=== PATIENT | female | born 1950 | race African-American/Black ===

== ENCOUNTER 2017-05-21 10:25 | Inpatient (IN) | payer OTHER ==
[~2017-05-21] VITALS: Ht 162.6 cm; Wt 76.7 kg
[2017-05-21] MEDS ORDERED: IPRATROPIUM BROMIDE (0.02%) 0.5MG/2.5ML NEB HHN STA (10:41)
[2017-05-21] MEDS ORDERED: METHYLPREDNISOLONE SOD SUCC 125 MG/2 ML VIAL IV STA (10:41)
[2017-05-21] MEDS ORDERED: ALBUTEROL (0.083%) 2.5MG/3ML NEB HHN STA (10:41)
[2017-05-21 10:54] LABS: BASOPHILS % 0.6 % (0.0-2.0); EOSINOPHILS % 0.3 % (0.0-5.0); HEMATOCRIT. 28.3 % (36.0-48.0); HEMOGLOBIN. 8.3 g/dL (12.0-16.0); LYMPHOCYTES % 8.6 % (20.0-50.0); MEAN CORPUSCULAR VOLUME 60.9 fL (81.0-99.0); MEAN PLATELET VOLUME 8.5 fl (7.4-10.4); MONOCYTES % 14.5 % (2.0-8.0); PLATELET 228 x1000/uL (130-400); RED BLOOD CELL COUNT 4.64 mill/uL (4.2-5.4); RED CELL DISTRIBUTION WIDTH 20.7 % (11.6-14.6)
[2017-05-21] MEDS ORDERED: ASPIRIN 325MG TABLET PO ONE (11:00)
[2017-05-21 11:05] LABS: D-DIMER 1.86 mg/L FEU (<0.50); INR 1.2; PROTHROMBIN TIME 12.5 sec (9.4-11.6)
[2017-05-21 11:12] LABS: CARBON DIOXIDE 27 mEq/L (21-32); CHLORIDE 106 mEq/L (98-107); TROPONIN I 0.04 ng/mL (0.00-0.04)
[2017-05-21 11:21] LABS: PLATELET ESTIMATE NORMAL
[2017-05-21] MEDS ORDERED: ENOXAPARIN 80MG/0.8ML SYR SUBCUT ONE (13:15)
[2017-05-21] MEDS ORDERED: LEVOFLOXACIN 750MG PREMIX 150 ML IV ONE (14:30)
[2017-05-21 14:55] LABS: CLARITY URINE CLEAR (CLEAR); COLOR URINE YELLOW (YELLOW); GLUCOSE URINE NEGATIVE (NEGATIVE); KETONES URINE TRACE (NEGATIVE); LEUKOCYTE ESTERASE URINE NEGATIVE (NEGATIVE); NITRITE URINE NEGATIVE (NEGATIVE); OCCULT BLOOD URINE NEGATIVE (NEGATIVE); PH URINE 6.5 (4.5-8.0); PROTEIN URINE NEGATIVE (NEGATIVE); SPECIFIC GRAVITY URINE 1.048 (1.005-1.030)
[2017-05-21] MEDS ORDERED: IOHEXOL-300 100 ML BOTTLE ONE (15:17)
[2017-05-21] MEDS ORDERED: IOHEXOL-350 100 ML BOTTLE ONE (15:22)
[2017-05-21] MEDS ORDERED: ATEN100T PO (16:14)
[2017-05-21] MEDS ORDERED: ALBU2.5V13 NEB (16:14)
[2017-05-21] MEDS ORDERED: NIFE30TA94 PO (16:14)
[2017-05-21] MEDS ORDERED: FLOV44 INH (16:14)
[2017-05-21] MEDS ORDERED: FLUT1DIS3 IH (16:14)
[2017-05-21 16:39] VITALS: BP 120/75
[2017-05-21] MEDS ORDERED: ALBUTEROL (0.083%) 2.5MG/3ML NEB HHN PRN (17:30)
[2017-05-21 20:00] VITALS: BP 148/76
[2017-05-21] MEDS ORDERED: DOCUSATE SODIUM 100MG CAPSULE PO PRN (20:00)
[2017-05-21] MEDS ORDERED: GUAIFENESIN 200MG/10ML SUGAR FREE UDC PO PRN (20:00)
[2017-05-21] MEDS ORDERED: ACETAMINOPHEN 325MG TABLET PO PRN (20:00)
[2017-05-21] MEDS ORDERED: CLONIDINE 0.1MG TABLET PO PRN (20:00)
[2017-05-21] MEDS: METHYLPREDNISOLONE SOD SUCC 40 MG/ML VIAL IV SCH (20:54)
[2017-05-21] MEDS: ENOXAPARIN 80MG/0.8ML SYR SUBCUT SCH (20:55)
[2017-05-21] MEDS ORDERED: CEFTRIAXONE 1 G PREMIX 50 ML IV SCH (22:00)
[2017-05-22] VITALS (9 sets, daily range): BP systolic 108–167; BP diastolic 60–94
[2017-05-22] MEDS: METHYLPREDNISOLONE SOD SUCC 40 MG/ML VIAL IV SCH ×4 (01:14→18:06)
[2017-05-22 04:51] LABS: BG BASE EXCESS 1.1 mmol/L (-2.0-2.0); BG CARBOXYHEMOGLOBIN 0.2 % (0.5-1.5); BG DEOXYHEMOGLOBIN 5.4 % (0.0-5.0); BG FRACTION INSPIRED OXYGEN 21; BG HCO3 ACT 25.5 mmol/L (22.0-26.0); BG METHEMOGLOBIN 0.4 % (0.0-1.5); BG OXYGEN SATURATION 94.6 % (92.0-98.5); BG PH 7.423 (7.350-7.450); BG PO2 74.1 mmHg (75.0-100.0); BG SAMPLE SITE RIGHT RADIAL; BG TOTAL HEMOGLOBIN 8.6 g/dL (12.0-18.0); BG VENT MODE ROOM AIR
[2017-05-22] MEDS ORDERED: OMEPRAZOLE 20MG CAPSULE EXTENDED RELEASE PO SCH (06:45)
[2017-05-22] MEDS: IPRATROPIUM/ALBUTEROL 0.5-3(2.5)MG/3ML NEB HHN SCH ×4 (06:59→16:00)
[2017-05-22 07:06] LABS: HEMOGLOBIN. 7.6 g/dL (12.0-16.0); MEAN CORPUSCULAR HEMOGLOBIN 17.9 pg (28.0-32.0); MEAN CORPUSCULAR VOLUME 61.2 fL (81.0-99.0); MEAN PLATELET VOLUME 9.5 fl (7.4-10.4); PLATELET 199 x1000/uL (130-400); RED BLOOD CELL COUNT 4.25 mill/uL (4.2-5.4); RED CELL DISTRIBUTION WIDTH 20.8 % (11.6-14.6)
[2017-05-22 07:30] LABS: CARBON DIOXIDE 27 mEq/L (21-32); CHLORIDE 106 mEq/L (98-107); PHOSPHORUS 3.3 mg/dL (2.5-4.9); TOTAL IRON BINDING CAPACITY 483 ug/dL (250-450)
[2017-05-22 08:57] LABS: FOLIC ACID (FOLATE) SERUM 9.1 ng/mL (>5.38)
[2017-05-22] MEDS ORDERED: AZITHROMYCIN 500 MG TABLET PO SCH (09:00)
[2017-05-22] MEDS ORDERED: NIFEDIPINE XL 90MG TAB PO SCH (09:00)
[2017-05-22] MEDS ORDERED: ATENOLOL 100 MG TABLET PO SCH (09:00)
[2017-05-22] MEDS: ENOXAPARIN 80MG/0.8ML SYR SUBCUT SCH (09:06)
[2017-05-22 10:56] LABS: PLATELET ESTIMATE NORMAL
== END 2017-05-22 18:45 | disposition short-term general hospital (02) | DRG 175 ==
LOC: ER 10:41 → 5WST 14:29 → ENRESERV 14:47
PROVIDERS: ADMIT Internal Medicine Pulmonary Disease; ATTEND Internal Medicine Pulmonary Disease
DX: I26.99 Other pulmonary embolism without acute cor pulmonale (principal); J18.9 Pneumonia, unspecified organism; J45.901 Unspecified asthma with (acute) exacerbation; I10 Essential (primary) hypertension; D64.9 Anemia, unspecified; Z88.0 Allergy status to penicillin; Z90.49 Acquired absence of other specified parts of digestive tract; Z82.3 Family history of stroke; Z82.49 Family history of ischemic heart disease and other diseases of the circulatory system; Z82.5 Family history of asthma and other chronic lower respiratory diseases; Z88.6 Allergy status to analgesic agent
CPT/HCPCS: 36415; 36600; 71010; 71275; 80048; 80053; 81003; 82375; 82607; 82746; 82805; 83540; 83550; 83605; 83735; 83880; 84100; 84484; 85025; 85379; 85610; 87040; 93005; 93970; 94640; 94664; 96372; 96374; 99291; J0696; J1650; J2920; J2930; J7040; J7611; J7620; Q9967

== ENCOUNTER 2021-08-24 16:07 | Emergency (ER) | payer MEDICARE, OTHER ==
[~2021-08-24] VITALS: Ht 175.3 cm; Wt 90.0 kg
[~2021-08-24 16:07] MED LIST: ALBU2.5V13 NEB; ATEN100T PO; FLOV44 INH; FLUT1DIS3 IH; NIFE30TA94 PO
[2021-08-24 16:50] LABS: HEMATOCRIT. 31.7 % (36.0-48.0); HEMOGLOBIN. 10.2 g/dL (12.0-16.0); MEAN CORPUSCULAR HEMOGLOBIN 26.4 pg (28.0-32.0); MEAN CORPUSCULAR VOLUME 81.9 fL (81.0-99.0); MEAN PLATELET VOLUME 8.8 fl (7.4-10.4); PLATELET 294 x1000/uL (130-400); RED BLOOD CELL COUNT 3.87 mill/uL (4.2-5.4); RED CELL DISTRIBUTION WIDTH 16.9 % (11.6-14.6)
[2021-08-24 16:56] LABS: CHLORIDE 97 mEq/L (98-107)
[2021-08-24 16:59] LABS: ETHANOL BLOOD < 10 mg/dL
[2021-08-24 17:05] LABS: CLARITY URINE CLEAR (CLEAR); COLOR URINE YELLOW (YELLOW); KETONES URINE NEGATIVE (NEGATIVE); LEUKOCYTE ESTERASE URINE NEGATIVE (NEGATIVE); NITRITE URINE NEGATIVE (NEGATIVE); OCCULT BLOOD URINE NEGATIVE (NEGATIVE); PROTEIN URINE NEGATIVE (NEGATIVE); SPECIFIC GRAVITY URINE 1.018 (1.005-1.030); UROBILINOGEN URINE 0.2 E.U./dL (0.2-1.0)
[2021-08-24 17:19] LABS: *AMPHETAMINES SCREEN URINE NEGATIVE (NEGATIVE); *BARBITURATES SCREEN URINE NEGATIVE (NEGATIVE); *BENZODIAZEPINES SCREEN URINE NEGATIVE (NEGATIVE); *COCAINE SCREEN URINE NEGATIVE (NEGATIVE); CANNABINOID URINE SCREEN NEGATIVE (NEGATIVE); METHADONE URINE SCREEN NEGATIVE (NEGATIVE); OPIATES URINE SCREEN NEGATIVE (NEGATIVE); PHENCYCLIDINE URINE SCREEN NEGATIVE (NEGATIVE)
[2021-08-24] MEDS ORDERED: ACETAMINOPHEN 650MG SUPP PR ONE (18:00)
[2021-08-24 20:43] LABS: PLATELET ESTIMATE NORMAL
[2021-08-25 14:10] VITALS: BP 130/69
== END 2021-08-25 14:29 | disposition home or self-care (01) ==
LOC: ER 16:07
DX: U07.1 COVID-19 (principal); I10 Essential (primary) hypertension; J45.909 Unspecified asthma, uncomplicated; I69.351 Hemiplegia and hemiparesis following cerebral infarction affecting right dominant side; Z90.49 Acquired absence of other specified parts of digestive tract; Z88.6 Allergy status to analgesic agent; Z88.0 Allergy status to penicillin
CPT/HCPCS: 36415; 71045; 80053; 80305; 80320; 81003; 82962; 83605; 84145; 84484; 85025; 87077; 87186; 87426; 99285; A4315; G0480

== ENCOUNTER 2021-11-22 17:52 | Inpatient (IN) | payer MEDICARE, OTHER ==
[~2021-11-22] VITALS: Ht 167.6 cm; Wt 102.7 kg
[2021-11-22 19:26] LABS: CHLORIDE 102 mEq/L (98-107)
[2021-11-22] MEDS ORDERED: VANCOMYCIN 1G PREMIX 200 ML IV ONE (20:15)
[2021-11-22] MEDS ORDERED: SODIUM CHLORIDE 0.9% 1000ML BAG (SEPSIS BOLUS) IV ONE (20:15)
[2021-11-22] MEDS ORDERED: VANCOMYCIN 1GM PMX (XELLIA) 200 ML IV NR (20:39)
[2021-11-22 20:55] LABS: HEMATOCRIT. 25.9 % (36.0-48.0); HEMOGLOBIN. 7.7 g/dL (12.0-16.0); MEAN CORPUSCULAR VOLUME 80.6 fL (81.0-99.0); MEAN PLATELET VOLUME 6.9 fl (7.4-10.4); PLATELET 525 x1000/uL (130-400); RED BLOOD CELL COUNT 3.22 mill/uL (4.2-5.4); RED CELL DISTRIBUTION WIDTH 19.5 % (11.6-14.6)
[2021-11-22 20:58] LABS: CLARITY URINE TURBID (CLEAR); COLOR URINE DARK YELLOW (YELLOW); KETONES URINE TRACE (NEGATIVE); LEUKOCYTE ESTERASE URINE 2+ (NEGATIVE); NITRITE URINE NEGATIVE (NEGATIVE); OCCULT BLOOD URINE TRACE (NEGATIVE); PH URINE 6.5 (4.5-8.0); PROTEIN URINE 2+ (NEGATIVE); SPECIFIC GRAVITY URINE 1.025 (1.005-1.030)
[2021-11-22] MEDS: CEFEPIME 1,000 MG in DEXTROSE 5% WATER 50 ML IV SCH (21:01)
[2021-11-22 21:24] LABS: PLATELET ESTIMATE INCREASED
[2021-11-22] MEDS ORDERED: CLINDAMYCIN 300 MG in DEXTROSE 5% WATER 50 ML IV ONE (23:00)
[2021-11-23] MEDS ORDERED: LEVOFLOXACIN 500MG PREMIX 100 ML IV SCH (06:30)
[2021-11-23] MEDS ORDERED: MAGNESIUM/ALUMINUM HYDROXIDE/SIMETHICONE 30ML UDC PO PRN (06:30)
[2021-11-23] MEDS ORDERED: DOCUSATE SODIUM 100MG CAPSULE PO PRN (06:30)
[2021-11-23] MEDS ORDERED: SODIUM CHLORIDE 0.9% 1,000 ML IV SCH (06:30)
[2021-11-23] MEDS ORDERED: ACETAMINOPHEN 325MG TABLET PO PRN (06:30)
[2021-11-23] MEDS ORDERED: ONDANSETRON HCL 4MG/2ML INJ IV PRN ×2 (06:30→14:15)
[2021-11-23] MEDS: CEFEPIME 1,000 MG in DEXTROSE 5% WATER 50 ML IV SCH ×2 (08:48→20:15)
[2021-11-23] MEDS: ENOXAPARIN 40MG/0.4ML SYR SUBCUT SCH (09:00)
[2021-11-23] MEDS: DEXT 5%/0.9% NACL 1,000 ML IV SCH (09:30)
[2021-11-23 09:53] VITALS: BP 105/54
[2021-11-23 10:00] VITALS: BP 105/59
[2021-11-23] MEDS ORDERED: BUPIVACAINE HCL/PF 0.5% (5MG/ML) 30ML ONE (11:55)
[2021-11-23 12:00] VITALS: BP 109/67
[2021-11-23] MEDS ORDERED: VANCOMYCIN 1250MG in DEXTROSE 5% WATER 250ML IV SCH (12:00)
[2021-11-23] MEDS ORDERED: ROCURONIUM BROMIDE 10MG/ML VIAL 5ML IV ONE (13:48)
[2021-11-23 14:00] VITALS: BP 108/60
[2021-11-23] MEDS ORDERED: ETOMIDATE 2MG/ML 10ML VIAL IV ONE (14:10)
[2021-11-23] MEDS ORDERED: MIDAZOLAM HCL 2 MG/2 ML VIAL ONE (14:13)
[2021-11-23] MEDS ORDERED: FENTANYL CITRATE/PF 50MCG/ML 2ML VIAL ONE (14:13)
[2021-11-23] MEDS ORDERED: HYDROMORPHONE HCL/PF 2MG/ML CPJ IV PRN (14:15)
[2021-11-23] MEDS ORDERED: LABETALOL 5MG/ML SYR 20 MG/4 ML SYRINGE IV PRN (14:15)
[2021-11-23] MEDS ORDERED: MEPERIDINE HCL/PF 25MG/ML CPJ IV PRN (14:15)
[2021-11-23] MEDS ORDERED: GLYCOPYRROLATE 0.2 MG/ML 2ML VIAL ONE ×2 (14:21→14:27)
[2021-11-23] MEDS ORDERED: NEOSTIGMINE METHYLSULFATE 1MG/ML 10 ML VIAL ONE (14:21)
[2021-11-23] MEDS ORDERED: AMLO5TAB88 MT (15:43)
[2021-11-23] MEDS ORDERED: LISI20TA31 MT (15:44)
[2021-11-23] MEDS ORDERED: APIX5TAB PO (15:44)
[2021-11-23] MEDS ORDERED: METO25TA6 MT (15:45)
[2021-11-23] MEDS ORDERED: TRAZ-251 MT (15:46)
[2021-11-23] MEDS ORDERED: ATOR-2 PO (15:47)
[2021-11-23] MEDS ORDERED: PANT40TA51 PO (15:48)
[2021-11-23] MEDS ORDERED: SPIR25TA6 PO (15:49)
[2021-11-23 16:00] VITALS: BP 109/65
[2021-11-23] MEDS: PANTOPRAZOLE SODIUM 40 MG/VIAL IV SCH ×2 (16:15→21:00)
[2021-11-23] MEDS: VANCOMYCIN 1.25GM PMX (XELLIA) 250 ML IV SCH (16:26)
[2021-11-23 17:16] LABS: HEMATOCRIT. 24.4 % (36.0-48.0); HEMOGLOBIN. 7.5 g/dL (12.0-16.0); MEAN CORPUSCULAR HEMOGLOBIN 23.9 pg (28.0-32.0); MEAN CORPUSCULAR VOLUME 78.1 fL (81.0-99.0); PLATELET 466 x1000/uL (130-400); RED BLOOD CELL COUNT 3.12 mill/uL (4.2-5.4); RED CELL DISTRIBUTION WIDTH 19.6 % (11.6-14.6)
[2021-11-23 17:33] LABS: TOTAL IRON BINDING CAPACITY 157 ug/dL (250-450)
[2021-11-23 17:47] LABS: FERRITIN 521 ng/mL (10-291); FOLIC ACID (FOLATE) SERUM >20 ng/mL ng/mL (>5.38)
[2021-11-23 17:59] LABS: VITAMIN B12 SERUM >2000 pg/mL pg/mL (211-911)
[2021-11-23 18:16] LABS: NUCLEATED RED BLOOD CELLS 1 /100 WBC
[2021-11-23 18:17] LABS: PLATELET ESTIMATE INCREASED
[2021-11-23 20:00] VITALS: BP 133/65
[2021-11-24] VITALS (10 sets, daily range): BP systolic 91–136; BP diastolic 46–78
[2021-11-24] MEDS: DEXT 5%/0.9% NACL 1,000 ML IV SCH ×2 (00:19→14:59)
[2021-11-24] MEDS: VANCOMYCIN 1.25GM PMX (XELLIA) 250 ML IV SCH (05:54)
[2021-11-24] MEDS ORDERED: LEVOFLOXACIN 250MG PREMIX 50 ML IV SCH (06:45)
[2021-11-24] MEDS: LEVOFLOXACIN 250MG PREMIX 50 ML IV SCH (08:14)
[2021-11-24] MEDS: PANTOPRAZOLE SODIUM 40 MG/VIAL IV SCH ×2 (08:39→21:56)
[2021-11-24] MEDS: ENOXAPARIN 40MG/0.4ML SYR SUBCUT SCH (08:39)
[2021-11-24 10:08] LABS: HEMATOCRIT. 22.6 % (36.0-48.0); MEAN CORPUSCULAR HEMOGLOBIN 24.6 pg (28.0-32.0); MEAN CORPUSCULAR VOLUME 79.6 fL (81.0-99.0); MEAN PLATELET VOLUME 6.8 fl (7.4-10.4); PLATELET 462 x1000/uL (130-400); RED BLOOD CELL COUNT 2.83 mill/uL (4.2-5.4); RED CELL DISTRIBUTION WIDTH 19.6 % (11.6-14.6)
[2021-11-24 10:14] LABS: CHLORIDE 116 mEq/L (98-107)
[2021-11-24 11:09] LABS: NUCLEATED RED BLOOD CELLS 1 /100 WBC; PLATELET ESTIMATE SLIGHTLY INCREASED
[2021-11-24 22:07] LABS: HEMATOCRIT 28.8 % (36.0-48.0); HEMOGLOBIN 8.8 g/dL (12.0-16.0)
[2021-11-25] VITALS: BP 136/73
[2021-11-25 04:00] VITALS: BP 138/70
[2021-11-25] MEDS: DEXT 5%/0.9% NACL 1,000 ML IV SCH ×2 (05:17→18:36)
[2021-11-25] MEDS: VANCOMYCIN 1250MG in DEXTROSE 5% WATER 250ML IV SCH (05:44)
[2021-11-25] MEDS ORDERED: VANCOMYCIN 1.25GM PMX (XELLIA) 250 ML IV SCH (06:00)
[2021-11-25 08:00] VITALS: BP 141/92
[2021-11-25] MEDS: LEVOFLOXACIN 250MG PREMIX 50 ML IV SCH (08:16)
[2021-11-25] MEDS: ENOXAPARIN 40MG/0.4ML SYR SUBCUT SCH (08:17)
[2021-11-25] MEDS: PANTOPRAZOLE SODIUM 40 MG/VIAL IV SCH ×2 (08:17→22:05)
[2021-11-25 08:38] LABS: CHLORIDE 121 mEq/L (98-107)
[2021-11-25 12:00] VITALS: BP 155/75
[2021-11-25 16:00] VITALS: BP 133/74
[2021-11-25 20:00] VITALS: BP 111/65
[2021-11-26] VITALS: BP 156/80
[2021-11-26 04:00] VITALS: BP 144/78
[2021-11-26 06:14] LABS: BASOPHILS % 0.2 % (0.0-2.0); EOSINOPHILS % 1.3 % (0.0-5.0); HEMATOCRIT. 25.5 % (36.0-48.0); HEMOGLOBIN. 8.2 g/dL (12.0-16.0); LYMPHOCYTES % 9.2 % (20.0-50.0); MEAN CORPUSCULAR HEMOGLOBIN 25.1 pg (28.0-32.0); MEAN CORPUSCULAR VOLUME 78.4 fL (81.0-99.0); MEAN PLATELET VOLUME 6.6 fl (7.4-10.4); MONOCYTES % 12.5 % (2.0-8.0); NEUTROPHILS % 76.8 % (40.0-76.0); PLATELET 398 x1000/uL (130-400); RED BLOOD CELL COUNT 3.25 mill/uL (4.2-5.4); RED CELL DISTRIBUTION WIDTH 19.5 % (11.6-14.6)
[2021-11-26] MEDS: VANCOMYCIN 1250MG in DEXTROSE 5% WATER 250ML IV SCH (06:18)
[2021-11-26 06:32] LABS: INR 1.2; PROTHROMBIN TIME 12.8 sec (9.6-11.0)
[2021-11-26 08:00] VITALS: BP 104/59
[2021-11-26] MEDS: PANTOPRAZOLE SODIUM 40 MG/VIAL IV SCH ×2 (08:40→21:37)
[2021-11-26] MEDS: ENOXAPARIN 40MG/0.4ML SYR SUBCUT SCH (08:40)
[2021-11-26] MEDS: LEVOFLOXACIN 250MG PREMIX 50 ML IV SCH (08:41)
[2021-11-26] MEDS: DEXT 5%/0.9% NACL 1,000 ML IV SCH (08:41)
[2021-11-26 08:42] LABS: CHLORIDE 118 mEq/L (98-107)
[2021-11-26 12:00] VITALS: BP 130/65
[2021-11-26] MEDS: KCL 20MEQ/100ML PREMIX 100 ML IV SCH ×2 (13:00→14:52)
[2021-11-26 16:00] VITALS: BP 110/75
[2021-11-26 20:00] VITALS: BP 115/50
[2021-11-26] MEDS: VANCOMYCIN 750MG PMX (XELLIA) 150 ML IV SCH (21:38)
[2021-11-27] VITALS: BP 133/66
[2021-11-27 04:00] VITALS: BP 114/63
[2021-11-27] MEDS: DEXT 5%/0.9% NACL 1,000 ML IV SCH (05:10)
[2021-11-27 06:45] LABS: BASOPHILS % 0.2 % (0.0-2.0); EOSINOPHILS % 1.7 % (0.0-5.0); HEMOGLOBIN. 8.4 g/dL (12.0-16.0); LYMPHOCYTES % 9.8 % (20.0-50.0); MEAN CORPUSCULAR VOLUME 79.8 fL (81.0-99.0); MEAN PLATELET VOLUME 6.6 fl (7.4-10.4); MONOCYTES % 9.3 % (2.0-8.0); PLATELET 362 x1000/uL (130-400); RED BLOOD CELL COUNT 3.38 mill/uL (4.2-5.4); RED CELL DISTRIBUTION WIDTH 19.6 % (11.6-14.6)
[2021-11-27 07:12] LABS: CHLORIDE 115 mEq/L (98-107)
[2021-11-27 08:00] VITALS: BP 118/65
[2021-11-27] MEDS: VANCOMYCIN 750MG PMX (XELLIA) 150 ML IV SCH (08:46)
[2021-11-27] MEDS: PANTOPRAZOLE SODIUM 40 MG/VIAL IV SCH ×2 (08:51→20:45)
[2021-11-27] MEDS: LEVOFLOXACIN 250MG PREMIX 50 ML IV SCH (08:51)
[2021-11-27] MEDS: ENOXAPARIN 40MG/0.4ML SYR SUBCUT SCH (08:51)
[2021-11-27] MEDS ORDERED: POTASSIUM CHLORIDE 20MEQ TABLET SR PO NR (09:30)
[2021-11-27] MEDS ORDERED: LEVOFLOXACIN 250MG TABLET PO SCH (11:00)
[2021-11-27 12:00] VITALS: BP 117/58
[2021-11-27 16:00] VITALS: BP 124/62
[2021-11-27 20:00] VITALS: BP 131/60
[2021-11-28] VITALS: BP 120/64
[2021-11-28 04:00] VITALS: BP 127/55
[2021-11-28 08:00] VITALS: BP 116/61
[2021-11-28] MEDS: PANTOPRAZOLE SODIUM 40 MG/VIAL IV SCH ×2 (10:05→21:39)
[2021-11-28] MEDS: ENOXAPARIN 40MG/0.4ML SYR SUBCUT SCH (10:06)
[2021-11-28] MEDS: SODIUM HYPOCHLORITE (0.25%) 480ML SOLUTION (HALF STRENGTH) TOP SCH (10:09)
[2021-11-28] MEDS: LEVOFLOXACIN 250MG TABLET PO SCH (10:11)
[2021-11-28 12:00] VITALS: BP 119/71
[2021-11-28 16:00] VITALS: BP 138/70
[2021-11-28 20:00] VITALS: BP 131/76
[2021-11-29] VITALS (7 sets, daily range): BP systolic 120–163; BP diastolic 53–81
[2021-11-29 06:44] LABS: BASOPHILS % 0.2 % (0.0-2.0); EOSINOPHILS % 1.3 % (0.0-5.0); HEMATOCRIT. 29.1 % (36.0-48.0); HEMOGLOBIN. 9.3 g/dL (12.0-16.0); LYMPHOCYTES % 9.6 % (20.0-50.0); MEAN CORPUSCULAR HEMOGLOBIN 24.7 pg (28.0-32.0); MEAN CORPUSCULAR VOLUME 77.5 fL (81.0-99.0); MEAN PLATELET VOLUME 6.6 fl (7.4-10.4); MONOCYTES % 9.3 % (2.0-8.0); NEUTROPHILS % 79.6 % (40.0-76.0); PLATELET 339 x1000/uL (130-400); RED BLOOD CELL COUNT 3.75 mill/uL (4.2-5.4); RED CELL DISTRIBUTION WIDTH 20.1 % (11.6-14.6)
[2021-11-29 07:10] LABS: CHLORIDE 115 mEq/L (98-107)
[2021-11-29] MEDS ORDERED: POTASSIUM CHLORIDE 20MEQ TABLET SR PO SCH (09:00)
[2021-11-29] MEDS: ENOXAPARIN 40MG/0.4ML SYR SUBCUT SCH (09:31)
[2021-11-29] MEDS: PANTOPRAZOLE SODIUM 40 MG/VIAL IV SCH ×2 (09:32→21:01)
[2021-11-29] MEDS: SODIUM HYPOCHLORITE (0.25%) 480ML SOLUTION (HALF STRENGTH) TOP SCH (09:33)
[2021-11-29] MEDS: LEVOFLOXACIN 250MG TABLET PO SCH (09:56)
[2021-11-29 17:18] LABS: HEPATITIS B SURFACE ANTIGEN NEGATIVE
[2021-11-30] VITALS: BP 150/87
[2021-11-30 04:00] VITALS: BP 147/78
[2021-11-30 06:26] LABS: HEMATOCRIT. 26.2 % (36.0-48.0); HEMOGLOBIN. 8.3 g/dL (12.0-16.0); MEAN CORPUSCULAR HEMOGLOBIN 24.8 pg (28.0-32.0); MEAN CORPUSCULAR VOLUME 77.9 fL (81.0-99.0); RED BLOOD CELL COUNT 3.36 mill/uL (4.2-5.4); RED CELL DISTRIBUTION WIDTH 20.2 % (11.6-14.6)
[2021-11-30 06:42] LABS: CHLORIDE 118 mEq/L (98-107)
[2021-11-30 08:00] VITALS: BP 156/77
[2021-11-30] MEDS: PANTOPRAZOLE SODIUM 40 MG/VIAL IV SCH ×2 (08:43→22:12)
[2021-11-30] MEDS: SODIUM HYPOCHLORITE (0.25%) 480ML SOLUTION (HALF STRENGTH) TOP SCH (08:44)
[2021-11-30] MEDS: ENOXAPARIN 40MG/0.4ML SYR SUBCUT SCH (08:44)
[2021-11-30 08:45] LABS: PLATELET 299 x1000/uL (130-400)
[2021-11-30 08:49] LABS: PLATELET ESTIMATE NORMAL
[2021-11-30 12:30] VITALS: BP 158/70
[2021-11-30] MEDS: METOCLOPRAMIDE HCL 10MG/2ML VIAL IV SCH ×2 (13:19→17:20)
[2021-11-30] MEDS: KCL 20MEQ/100ML PREMIX 100 ML IV SCH (13:19)
[2021-11-30] MEDS: LEVOFLOXACIN 250MG TABLET PO SCH (13:19)
[2021-11-30 16:00] VITALS: BP 152/72
[2021-11-30 20:00] VITALS: BP 132/65
[2021-12-01] VITALS: BP 147/70
[2021-12-01 04:00] VITALS: BP 142/74
[2021-12-01] MEDS: KCL 20MEQ/100ML PREMIX 100 ML IV SCH (07:03)
[2021-12-01] MEDS: METOCLOPRAMIDE HCL 10MG/2ML VIAL IV SCH ×5 (07:04→22:41)
[2021-12-01 07:39] LABS: BASOPHILS % 0.3 % (0.0-2.0); EOSINOPHILS % 2.3 % (0.0-5.0); HEMATOCRIT. 27.1 % (36.0-48.0); HEMOGLOBIN. 8.6 g/dL (12.0-16.0); LYMPHOCYTES % 12.5 % (20.0-50.0); MEAN CORPUSCULAR HEMOGLOBIN 24.7 pg (28.0-32.0); MEAN CORPUSCULAR VOLUME 78.1 fL (81.0-99.0); MEAN PLATELET VOLUME 6.8 fl (7.4-10.4); MONOCYTES % 12.6 % (2.0-8.0); NEUTROPHILS % 72.3 % (40.0-76.0); PLATELET 279 x1000/uL (130-400); RED BLOOD CELL COUNT 3.47 mill/uL (4.2-5.4); RED CELL DISTRIBUTION WIDTH 20.4 % (11.6-14.6)
[2021-12-01 07:56] LABS: CHLORIDE 116 mEq/L (98-107)
[2021-12-01 08:00] VITALS: BP 148/83
[2021-12-01] MEDS: PANTOPRAZOLE SODIUM 40 MG/VIAL IV SCH ×2 (10:35→22:39)
[2021-12-01] MEDS: ENOXAPARIN 30MG/0.3ML SYR SUBCUT SCH ×2 (10:35→22:39)
[2021-12-01] MEDS: LEVOFLOXACIN 250MG TABLET PO SCH (10:35)
[2021-12-01] MEDS: SODIUM HYPOCHLORITE (0.25%) 480ML SOLUTION (HALF STRENGTH) TOP SCH (10:35)
[2021-12-01 12:00] VITALS: BP 130/77
[2021-12-01 16:00] VITALS: BP 138/82
[2021-12-01 20:00] VITALS: BP 140/76
[2021-12-02] VITALS: BP 131/73
[2021-12-02 04:00] VITALS: BP 140/77
[2021-12-02] MEDS: METOCLOPRAMIDE HCL 10MG/2ML VIAL IV SCH ×3 (07:05→18:36)
[2021-12-02 08:00] VITALS: BP 123/72
[2021-12-02] MEDS: PANTOPRAZOLE SODIUM 40 MG/VIAL IV SCH ×2 (08:13→20:19)
[2021-12-02] MEDS: ENOXAPARIN 30MG/0.3ML SYR SUBCUT SCH ×2 (08:13→20:19)
[2021-12-02] MEDS: SODIUM HYPOCHLORITE (0.25%) 480ML SOLUTION (HALF STRENGTH) TOP SCH (08:14)
[2021-12-02] MEDS: LEVOFLOXACIN 250MG TABLET PO SCH (11:06)
[2021-12-02 12:00] VITALS: BP 141/72
[2021-12-02 16:00] VITALS: BP 127/58
[2021-12-02 20:00] VITALS: BP 144/76
[2021-12-03] VITALS: BP 138/66
[2021-12-03] MEDS: METOCLOPRAMIDE HCL 10MG/2ML VIAL IV SCH ×4 (00:08→16:31)
[2021-12-03 04:00] VITALS: BP 120/75
[2021-12-03 08:00] VITALS: BP 143/61
[2021-12-03] MEDS: ENOXAPARIN 30MG/0.3ML SYR SUBCUT SCH ×2 (08:28→21:49)
[2021-12-03] MEDS: PANTOPRAZOLE SODIUM 40 MG/VIAL IV SCH ×2 (08:28→21:49)
[2021-12-03] MEDS: SODIUM HYPOCHLORITE (0.25%) 480ML SOLUTION (HALF STRENGTH) TOP SCH (08:29)
[2021-12-03] MEDS: LEVOFLOXACIN 250MG TABLET PO SCH (10:30)
[2021-12-03 12:00] VITALS: BP 156/81
[2021-12-03 16:00] VITALS: BP 150/83
[2021-12-03 20:00] VITALS: BP 153/89
[2021-12-04] VITALS: BP 149/80
[2021-12-04] MEDS: METOCLOPRAMIDE HCL 10MG/2ML VIAL IV SCH ×4 (00:50→18:59)
[2021-12-04 04:00] VITALS: BP 130/66
[2021-12-04 06:56] LABS: BASOPHILS % 0.3 % (0.0-2.0); EOSINOPHILS % 0.9 % (0.0-5.0); HEMATOCRIT. 26.1 % (36.0-48.0); HEMOGLOBIN. 8.2 g/dL (12.0-16.0); MEAN CORPUSCULAR HEMOGLOBIN 24.7 pg (28.0-32.0); MEAN CORPUSCULAR VOLUME 78.7 fL (81.0-99.0); MEAN PLATELET VOLUME 7.2 fl (7.4-10.4); MONOCYTES % 9.5 % (2.0-8.0); NEUTROPHILS % 81.3 % (40.0-76.0); PLATELET 253 x1000/uL (130-400); RED BLOOD CELL COUNT 3.32 mill/uL (4.2-5.4); RED CELL DISTRIBUTION WIDTH 21.4 % (11.6-14.6)
[2021-12-04 07:38] LABS: CHLORIDE 113 mEq/L (98-107)
[2021-12-04 08:00] VITALS: BP 162/72
[2021-12-04] MEDS: PANTOPRAZOLE SODIUM 40 MG/VIAL IV SCH ×2 (09:19→21:51)
[2021-12-04] MEDS: SODIUM HYPOCHLORITE (0.25%) 480ML SOLUTION (HALF STRENGTH) TOP SCH (09:19)
[2021-12-04] MEDS: ENOXAPARIN 30MG/0.3ML SYR SUBCUT SCH ×2 (09:19→21:51)
[2021-12-04] MEDS: METOPROLOL TARTRATE 25MG TABLET PO SCH ×2 (09:31→21:52)
[2021-12-04 12:00] VITALS: BP 147/78
[2021-12-04 16:00] VITALS: BP 150/72
[2021-12-04 20:00] VITALS: BP 139/70
[2021-12-05] VITALS: BP 137/67
[2021-12-05] MEDS: METOCLOPRAMIDE HCL 10MG/2ML VIAL IV SCH ×4 (00:37→17:28)
[2021-12-05 04:00] VITALS: BP 142/51
[2021-12-05 08:00] VITALS: BP 123/63
[2021-12-05] MEDS: PANTOPRAZOLE SODIUM 40 MG/VIAL IV SCH ×2 (08:24→21:38)
[2021-12-05] MEDS: ENOXAPARIN 30MG/0.3ML SYR SUBCUT SCH ×2 (08:24→21:38)
[2021-12-05] MEDS: SODIUM HYPOCHLORITE (0.25%) 480ML SOLUTION (HALF STRENGTH) TOP SCH (08:25)
[2021-12-05] MEDS: METOPROLOL TARTRATE 25MG TABLET PO SCH ×2 (08:26→21:37)
[2021-12-05 12:00] VITALS: BP 141/77
[2021-12-05 16:00] VITALS: BP 118/65
[2021-12-05 20:00] VITALS: BP 157/74
[2021-12-06] VITALS: BP 141/50
[2021-12-06] MEDS: METOCLOPRAMIDE HCL 10MG/2ML VIAL IV SCH ×4 (00:24→18:21)
[2021-12-06 04:00] VITALS: BP 154/77
[2021-12-06 08:00] VITALS: BP 160/75
[2021-12-06] MEDS: METOPROLOL TARTRATE 25MG TABLET PO SCH ×2 (10:01→21:22)
[2021-12-06] MEDS: ENOXAPARIN 30MG/0.3ML SYR SUBCUT SCH ×2 (10:01→21:23)
[2021-12-06] MEDS: SODIUM HYPOCHLORITE (0.25%) 480ML SOLUTION (HALF STRENGTH) TOP SCH (10:02)
[2021-12-06] MEDS: PANTOPRAZOLE SODIUM 40 MG/VIAL IV SCH ×2 (10:02→21:22)
[2021-12-06 11:59] LABS: CHLORIDE 111 mEq/L (98-107)
[2021-12-06 12:00] VITALS: BP 139/82
[2021-12-06 16:00] VITALS: BP 179/77
[2021-12-06 20:00] VITALS: BP 166/76
[2021-12-07] VITALS: BP 138/45
[2021-12-07] MEDS: METOCLOPRAMIDE HCL 10MG/2ML VIAL IV SCH ×2 (00:34→05:09)
[2021-12-07 04:00] VITALS: BP 109/50
[2021-12-07 08:00] VITALS: BP 121/76
== END 2021-12-07 10:00 | disposition hospice, home (50) | DRG 853 ==
LOC: ER 17:52 → MICUSO 11-23 01:19 → EDBEDREQTM 11-23 01:34 → EDBEDREQ 11-23 01:34 → EDBEDREQDT 11-23 01:34 → EDBEDREQSVC 11-23 01:34 → 8WST 11-23 09:12
PROVIDERS: ADMIT Hospitalist; ATTEND Hospitalist
PROC: 0JB70ZZ Excision of Back Subcutaneous Tissue and Fascia, Open Approach (ICD-10-PCS; principal; 2021-11-23)
PROC: 30233N1 Transfusion of Nonautologous Red Blood Cells into Peripheral Vein, Percutaneous Approach (ICD-10-PCS; 2021-11-24)
PROC: 0D20XUZ Change Feeding Device in Upper Intestinal Tract, External Approach (ICD-10-PCS; 2021-11-26)
PROC: 0KBV0ZZ Excision of Right Foot Muscle, Open Approach (ICD-10-PCS; 2021-11-27)
DX: A41.59 Other Gram-negative sepsis (principal); E43 Unspecified severe protein-calorie malnutrition; N39.0 Urinary tract infection, site not specified; K94.23 Gastrostomy malfunction; D50.9 Iron deficiency anemia, unspecified; J45.909 Unspecified asthma, uncomplicated; L89.159 Pressure ulcer of sacral region, unspecified stage; D63.8 Anemia in other chronic diseases classified elsewhere; I70.209 Unspecified atherosclerosis of native arteries of extremities, unspecified extremity; Z20.822 Contact with and (suspected) exposure to COVID-19; L08.9 Local infection of the skin and subcutaneous tissue, unspecified; R79.89 Other specified abnormal findings of blood chemistry; R13.10 Dysphagia, unspecified; R65.20 Severe sepsis without septic shock; Z68.36 Body mass index [BMI] 36.0-36.9, adult; Z86.73 Personal history of transient ischemic attack (TIA), and cerebral infarction without residual deficits; Z88.6 Allergy status to analgesic agent; Z88.0 Allergy status to penicillin; Z79.899 Other long term (current) drug therapy; Z79.01 Long term (current) use of anticoagulants; Z82.49 Family history of ischemic heart disease and other diseases of the circulatory system; Z90.49 Acquired absence of other specified parts of digestive tract; I70.234 Atherosclerosis of native arteries of right leg with ulceration of heel and midfoot
CPT/HCPCS: 36415; 71045; 74177; 80048; 80053; 80202; 81003; 82607; 82728; 82746; 83540; 83550; 83605; 83735; 84145; 84484; 85014; 85018; 85025; 85044; 86850; 86900; 86920; 87077; 87186; 87426; 88305; 93005; 93923; 93970; 99291; C1893; C9113; J0692; J1170; J1650; J1956; J2250; J2710; J2765; J3010; J3370; J3480; J3490; J7030; J7042; J7060; P9016; A4315